=== PATIENT | male | born 1970 | race Caucasian/White ===

== ENCOUNTER 2017-02-24 13:44 | Inpatient (IN) | payer MEDICAID ==
[~2017-02-24] VITALS: Ht 177.8 cm; Wt 101.0 kg
[2017-02-24 15:54] LABS: Albumin 3.5 g/dL (3.4-5.0); Anion Gap 10 (5-15); Aspartate Aminotransferase 144 U/L (15-37); BUN/Creatinine Ratio 9.1; Blood Urea Nitrogen 8 mg/dL (7-18); Calcium 8.2 mg/dL (8.5-10.1); Carbon Dioxide 24 mmol/L (21-32); Chloride 108 mmol/L (98-107); GFR African American 119 mL/min; GFR Non-African American 99 mL/min; Glucose 68 mg/dL (74-106); Sodium 142 mmol/L (136-145)
[2017-02-24 15:59] LABS: Alkaline Phosphatase 79 U/L (45-117); Bilirubin, Total 0.3 mg/dL (0.2-1.0); Total Protein 7.2 g/dL (6.4-8.2)
[2017-02-24 16:32] LABS: Hematocrit 46.4 % (41.0-53.0); Mean Corpuscular Hemoglobin 31.3 pg (28.0-32.0); Mean Corpuscular Hgb Conc. 32.4 g/dL (32.0-36.0); Mean Corpuscular Volume 96.7 fL (80.0-100.0); Mean Platelet Volume 9.2 fL (7.4-10.4); Platelet Count (auto) 180 10^3/uL (140-450); Red Cell Distribution Width 14.2 % (11.6-16.0); White Blood Cell 4.7 10^3/uL (4.4-10.8)
[2017-02-24 16:37] LABS: Metamyelocytes % 0; Myelocytes % 0; Promyelocytes % 0; Reactive Lymphocytes 0
[2017-02-24] MEDS ORDERED: MORPHINE SULF INJ 2 MG/ML SYRINGE 1ML IV ONE (18:45)
[2017-02-24] MEDS ORDERED: ONDANSETRON HCL 4 MG/2 ML VIAL IV ONE (18:45)
[2017-02-24 18:56] LABS: Anisocytosis Slight; Platelet Estimate Adequate
[2017-02-24] MEDS ORDERED: HYDROcodone-ACET 10/325MG TAB PO ONE (21:00)
[2017-02-24] MEDS ORDERED: IPRATROPIUM BROM 0.5 MG/2.5ML INH SOL NEB ONE (21:30)
[2017-02-24] MEDS ORDERED: ALBUTEROL SULF 2.5 MG/0.5ML(0.5%) NEB SOLN NEB ONE (21:30)
[2017-02-24] MEDS ORDERED: ASPirin 81 mg TAB PO ONE (22:00)
[2017-02-24] MEDS ORDERED: cefTRIAXone 1GM/50ML D5W 50 ML IV ONE (22:00)
[2017-02-25] VITALS (9 sets, daily range): BP systolic 98–120; BP diastolic 59–71
[2017-02-25] MEDS ORDERED: IOHEXOL 350 MG/ML 100ML IJ ONE (01:32)
[2017-02-25] MEDS: SODIUM CHLORIDE 0.9% 1,000 ML IV SCH ×4 (01:33→08:02)
[2017-02-25] MEDS ORDERED: TEMAZEPAM 15 MG CAP PO PRN (01:45)
[2017-02-25] MEDS ORDERED: ACETAMINOPHEN 325 MG TAB PO PRN (01:45)
[2017-02-25] MEDS ORDERED: ONDANSETRON HCL 4 MG/2 ML VIAL IV PRN (01:45)
[2017-02-25] MEDS: ENOXAPARIN SOD 100 MG/1 ML SYRINGE SC SCH ×2 (03:03→15:00)
[2017-02-25] MEDS: HYDROcodone-ACET 5/325MG TAB PO PRN ×3 (04:38→20:08)
[2017-02-25] MEDS: ALBUTEROL SULF 2.5 MG/0.5ML(0.5%) NEB SOLN NEB PRN ×2 (09:33→20:14)
[2017-02-25] MEDS: FAMOTIDINE 20 MG TAB PO SCH ×2 (09:54→21:57)
[2017-02-25] MEDS: ASPirin 81 mg TAB PO SCH (09:57)
[2017-02-25] MEDS: ATENOLOL 25 MG TAB PO SCH (09:58)
[2017-02-25] MEDS ORDERED: ENOXAPARIN SOD 40 MG/0.4 ML SYRINGE SC SCH (10:00)
[2017-02-25] MEDS: cefTRIAXone 1GM/50ML D5W 50 ML IV SCH (21:57)
[2017-02-26] MEDS: ENOXAPARIN SOD 100 MG/1 ML SYRINGE SC SCH (03:04)
[2017-02-26 05:30] VITALS: BP 122/78
[2017-02-26] MEDS: HYDROcodone-ACET 5/325MG TAB PO PRN ×2 (06:33→10:33)
[2017-02-26 06:37] LABS: Basophils # (auto) 0 uL; Basophils % (auto) 0.6 % (0.0-2.0); Eosinophils # (auto) 0.2 uL; Eosinophils % (auto) 3.6 % (0.0-7.0); Hematocrit 41.9 % (41.0-53.0); Hemoglobin 13.8 g/dL (13.5-17.5); Lymphocytes # (auto) 1.8 uL; Lymphocytes % (auto) 38.2 % (10.0-50.0); Mean Corpuscular Hgb Conc. 32.8 g/dL (32.0-36.0); Mean Corpuscular Volume 97.4 fL (80.0-100.0); Mean Platelet Volume 9.4 fL (7.4-10.4); Monocytes # (auto) 0.7 uL; Monocytes % (auto) 15.3 % (0.0-12.0); Neutrophils % (auto) 42.3 % (37.0-80.0); Platelet Count (auto) 170 10^3/uL (140-450); Red Cell Distribution Width 15.3 % (11.6-16.0); White Blood Cell 4.8 10^3/uL (4.4-10.8)
[2017-02-26 07:22] LABS: Albumin 3.1 g/dL (3.4-5.0); BUN/Creatinine Ratio 12.3; Bilirubin, Total 0.5 mg/dL (0.2-1.0); Potassium 4.5 mmol/L (3.5-5.1); Total Protein 6.3 g/dL (6.4-8.2)
[2017-02-26 08:00] VITALS: BP 121/78
[2017-02-26] MEDS: ALBUTEROL SULF 2.5 MG/0.5ML(0.5%) NEB SOLN NEB PRN ×3 (08:48→20:18)
[2017-02-26] MEDS: ATENOLOL 25 MG TAB PO SCH (10:32)
[2017-02-26] MEDS: FAMOTIDINE 20 MG TAB PO SCH ×2 (10:32→20:47)
[2017-02-26] MEDS: ASPirin 81 mg TAB PO SCH (10:32)
[2017-02-26] MEDS: SODIUM CHLORIDE 0.9% 1,000 ML IV SCH (10:53)
[2017-02-26 13:00] VITALS: BP 116/75
[2017-02-26] MEDS: HYDROcodone-ACET 10/325MG TAB PO PRN ×2 (15:24→20:48)
[2017-02-26 17:30] VITALS: BP 118/65
[2017-02-26] MEDS: RIVAROXABAN 15 MG TAB PO SCH (20:48)
[2017-02-26 21:55] VITALS: BP 123/65
[2017-02-26] MEDS: cefTRIAXone 1GM/50ML D5W 50 ML IV SCH (23:58)
[2017-02-27] MEDS: HYDROcodone-ACET 10/325MG TAB PO PRN ×3 (00:54→10:32)
[2017-02-27] MEDS: SODIUM CHLORIDE 0.9% 1,000 ML IV SCH (03:33)
[2017-02-27 05:55] VITALS: BP 113/62
[2017-02-27 07:33] LABS: Albumin 3.1 g/dL (3.4-5.0); BUN/Creatinine Ratio 14.6; Bilirubin, Total 0.3 mg/dL (0.2-1.0); Calcium 8.1 mg/dL (8.5-10.1); Potassium 4.3 mmol/L (3.5-5.1); Total Protein 6.4 g/dL (6.4-8.2)
[2017-02-27 08:35] VITALS: BP 113/70
[2017-02-27] MEDS: ATENOLOL 25 MG TAB PO SCH (10:31)
[2017-02-27] MEDS: ASPirin 81 mg TAB PO SCH (10:31)
[2017-02-27] MEDS: RIVAROXABAN 15 MG TAB PO SCH (10:32)
[2017-02-27] MEDS: FAMOTIDINE 20 MG TAB PO SCH (10:32)
[2017-02-27 11:14] VITALS: BP 110/72
== END 2017-02-27 15:14 | disposition home or self-care (01) | DRG 134 ==
LOC: ER 13:46 → OVERFLOW 13:47 → CENTRAL 02-25 03:10
PROVIDERS: ADMIT Nurse Practitioner; ATTEND Internal Medicine
DX: I26.99 Other pulmonary embolism without acute cor pulmonale (principal); F11.20 Opioid dependence, uncomplicated; K74.60 Unspecified cirrhosis of liver; J40 Bronchitis, not specified as acute or chronic; B19.20 Unspecified viral hepatitis C without hepatic coma; R09.1 Pleurisy; F17.210 Nicotine dependence, cigarettes, uncomplicated; F19.10 Other psychoactive substance abuse, uncomplicated; J45.909 Unspecified asthma, uncomplicated; R79.89 Other specified abnormal findings of blood chemistry; Z82.49 Family history of ischemic heart disease and other diseases of the circulatory system; Z71.6 Tobacco abuse counseling
CPT/HCPCS: 36415; 71020; 71250; 71275; 80053; 82962; 84484; 85007; 85025; 85027; 85379; 87081; 93005; 94640; 94761; 96365; 96366; 96375; J0696; J2405

== ENCOUNTER 2020-10-01 13:28 | Inpatient (IN) | payer MEDICAID ==
[~2020-10-01] VITALS: Ht 177.8 cm; Wt 106.4 kg
[2020-10-01 14:34] LABS: Basophils # (auto) 0.1 10 ^3/uL (0-0.2); Basophils % (auto) 0.7 % (0.0-2.0); Eosinophils # (auto) 0.2 10 ^3/uL (0-0.8); Hemoglobin 13.6 g/dL (13.5-17.5); Lymphocytes # (auto) 1.7 10 ^3/uL (0.4-5.4); Mean Corpuscular Hemoglobin 29.1 pg (28.0-32.0); Mean Corpuscular Hgb Conc. 31.8 g/dL (32.0-36.0); Mean Corpuscular Volume 91.7 fL (80.0-100.0); Monocytes # (auto) 0.9 10 ^3/uL (0-1.3); Monocytes % (auto) 10.9 % (0.0-12.0); Neutrophils # (auto) 5.3 10 ^3/uL (1.6-8.6); Neutrophils % (auto) 65.4 % (37.0-80.0); Nucleated Red Blood Cells % 0.2 %; Platelet Count (auto) 251 10^3/uL (140-450); Red Blood Cells 4.69 10^6/uL (4.5-5.90); Red Cell Distribution Width 15.2 % (11.8-14.3); White Blood Cell 8.1 10^3/uL (4.4-10.8)
[2020-10-01] MEDS ORDERED: ATENOLOL 25 MG TAB PO ONE (14:45)
[2020-10-01] MEDS ORDERED: LABETALOL HCL 5 MG/ML 4ML SYRINGE IV ONE (14:45)
[2020-10-01 14:55] LABS: Anion Gap 7 (5-15); Blood Urea Nitrogen 17 mg/dL (7-18); Calcium 8.7 mg/dL (8.5-10.1); Carbon Dioxide 23 mmol/L (21-32); Chloride 109 mmol/L (98-107); Glucose 125 mg/dL (74-106); Potassium 4.5 mmol/L (3.5-5.1); Sodium 139 mmol/L (136-145)
[2020-10-01 14:58] LABS: Albumin 3.5 g/dL (3.4-5.0); BUN/Creatinine Ratio 12.4; GFR African American 70 mL/min; GFR Non-African American 58 mL/min
[2020-10-01 15:03] LABS: Alanine Aminotransferase 34 U/L (16-61); Alkaline Phosphatase 88 U/L (45-117); Aspartate Aminotransferase 26 U/L (15-37); Bilirubin, Total 1.2 mg/dL (0.2-1.0)
[2020-10-01] MEDS ORDERED: MORPHINE SULF INJ 2 MG/ML SYRINGE 1ML IV PRN (15:45)
[2020-10-01] MEDS ORDERED: NITROGLYCERIN 0.4 MG SL TAB SL PRN (15:45)
[2020-10-01] MEDS ORDERED: FUROSEMIDE 20 MG/2 ML VIAL IV ONE (15:45)
[2020-10-01] MEDS ORDERED: ACETAMINOPHEN 500 MG TAB PO PRN (15:45)
[2020-10-01] MEDS ORDERED: DIGOXIN (250MCG/ML) 2 ML AMPULE IV ONE (17:15)
[2020-10-01 18:21] LABS: CRP High Sensitivity 0.61 mg/dL (< 0.3); Magnesium 2.1 mg/dL (1.6-2.6)
[2020-10-01] MEDS: FUROSEMIDE 20 MG/2 ML VIAL IV SCH (20:10)
[2020-10-01] MEDS: buPROPion HCL 75 MG TAB PO SCH (21:30)
[2020-10-01] MEDS: QUEtiapine FUMARATE 25 MG TAB PO SCH (22:00)
[2020-10-01 22:32] LABS: Lactic Acid w/Reflex 2.3 mmol/L (0.4-2.0)
[2020-10-01] MEDS: CARVEDILOL 3.125 MG TAB PO SCH (23:20)
[2020-10-02] MEDS: DIGOXIN (250MCG/ML) 2 ML AMPULE IV SCH ×2 (00:30→05:30)
[2020-10-02 06:03] LABS: Urine Bacteria FEW /hpf (None Seen); Urine Blood Negative /uL (Negative); Urine Hyaline Cast FEW /lpf (0 - 2); Urine Mucus FEW (None Seen); Urine Specific Gravity 1.036 (1.001-1.035); Urine WBC 1 /hpf (0 - 3)
[2020-10-02 06:18] LABS: Amphetamine Screen, Urine NEGATIVE (NEGATIVE); Barbiturate Scree,Urine NEGATIVE (NEGATIVE); Benzodiazephine Screen, Urine NEGATIVE (NEGATIVE); Cannabinoid Screen, Urine NEGATIVE (NEGATIVE); Cocaine Screen, Urine NEGATIVE (NEGATIVE); Opiate Scree,Urine NEGATIVE (NEGATIVE); Phencyclidine Screen, Urine NEGATIVE (NEGATIVE)
[2020-10-02] MEDS: FUROSEMIDE 20 MG/2 ML VIAL IV SCH ×2 (06:19→18:28)
[2020-10-02] MEDS: buPROPion HCL 75 MG TAB PO SCH ×2 (07:00→18:29)
[2020-10-02 07:19] LABS: Basophils # (auto) 0.1 10 ^3/uL (0-0.2); Basophils % (auto) 0.9 % (0.0-2.0); Eosinophils # (auto) 0 10 ^3/uL (0-0.8); Hematocrit 43.2 % (41.0-53.0); Lymphocytes # (auto) 1.7 10 ^3/uL (0.4-5.4); Lymphocytes % (auto) 16.8 % (10.0-50.0); Mean Corpuscular Hemoglobin 29.5 pg (28.0-32.0); Mean Corpuscular Hgb Conc. 32.4 g/dL (32.0-36.0); Mean Corpuscular Volume 91.2 fL (80.0-100.0); Monocytes % (auto) 9.6 % (0.0-12.0); Neutrophils # (auto) 7.4 10 ^3/uL (1.6-8.6); Neutrophils % (auto) 72.7 % (37.0-80.0); Nucleated Red Blood Cells % 0.1 %; Platelet Count (auto) 207 10^3/uL (140-450); Red Blood Cells 4.73 10^6/uL (4.5-5.90); Red Cell Distribution Width 14.9 % (11.8-14.3); White Blood Cell 10.1 10^3/uL (4.4-10.8)
[2020-10-02 07:42] LABS: Potassium 4.7 mmol/L (3.5-5.1)
[2020-10-02 07:55] LABS: Albumin 3.4 g/dL (3.4-5.0); BUN/Creatinine Ratio 16.4; Bilirubin, Total 1.1 mg/dL (0.2-1.0); Calcium 8.7 mg/dL (8.5-10.1); Total Protein 6.5 g/dL (6.4-8.2)
[2020-10-02 08:10] LABS: Magnesium 2.2 mg/dL (1.6-2.6)
[2020-10-02] MEDS: ASPirin 81 mg TAB PO SCH (09:57)
[2020-10-02] MEDS ORDERED: ZINC SULFATE 220mg CAP or TAB PO SCH (10:00)
[2020-10-02] MEDS ORDERED: CHOLECALCIFEROL (VITD3) 2,000 UNIT CAP PO SCH (10:00)
[2020-10-02] MEDS ORDERED: ASCORBIC ACID 1,000 MG TAB PO SCH (10:00)
[2020-10-02] MEDS: CARVEDILOL 3.125 MG TAB PO SCH ×2 (10:00→23:03)
[2020-10-02] MEDS: ENOXAPARIN SOD 40 MG/0.4 ML SYRINGE SC SCH (10:00)
[2020-10-02] MEDS: dilTIAZem 120MG ER CAP PO SCH (10:03)
[2020-10-02 17:18] VITALS: BP 102/59
[2020-10-02 22:00] VITALS: BP 115/68
[2020-10-02] MEDS: LORazepam 0.5 MG TAB PO PRN (23:04)
[2020-10-02] MEDS: QUEtiapine FUMARATE 25 MG TAB PO SCH (23:04)
[2020-10-03] VITALS (7 sets, daily range): BP systolic 110–121; BP diastolic 0–76
[2020-10-03] MEDS: FUROSEMIDE 20 MG/2 ML VIAL IV SCH ×2 (06:11→17:38)
[2020-10-03] MEDS: buPROPion HCL 75 MG TAB PO SCH ×2 (06:11→17:38)
[2020-10-03 06:28] LABS: Calcium 8.3 mg/dL (8.5-10.1); Potassium 3.7 mmol/L (3.5-5.1)
[2020-10-03 06:33] LABS: BUN/Creatinine Ratio 18.1; Bilirubin, Total 0.4 mg/dL (0.2-1.0); Total Protein 5.8 g/dL (6.4-8.2)
[2020-10-03] MEDS: dilTIAZem 120MG ER CAP PO SCH (10:06)
[2020-10-03] MEDS: ASPirin 81 mg TAB PO SCH (10:07)
[2020-10-03] MEDS: CARVEDILOL 3.125 MG TAB PO SCH ×2 (10:07→21:48)
[2020-10-03] MEDS: ENOXAPARIN SOD 40 MG/0.4 ML SYRINGE SC SCH (10:10)
[2020-10-03] MEDS ORDERED: ALBUTEROL SULF 2.5 MG/0.5ML(0.5%) NEB SOLN NEB PRN (14:15)
[2020-10-03] MEDS ORDERED: POTASSIUM CHL 20 Meq TABLET PO ONE (14:15)
[2020-10-03] MEDS ORDERED: IPRATROPIUM BROM 0.5 MG/2.5ML INH SOL NEB PRN (14:15)
[2020-10-03] MEDS ORDERED: BUP75T PO (14:33)
[2020-10-03] MEDS ORDERED: QUET50TA PO (14:34)
[2020-10-03] MEDS: QUEtiapine FUMARATE 25 MG TAB PO SCH (21:46)
[2020-10-04] VITALS (7 sets, daily range): BP systolic 117–132; BP diastolic 64–94
[2020-10-04] MEDS: FUROSEMIDE 20 MG/2 ML VIAL IV SCH ×2 (05:47→17:17)
[2020-10-04] MEDS: buPROPion HCL 75 MG TAB PO SCH ×2 (05:47→17:18)
[2020-10-04 07:24] LABS: Albumin 3.3 g/dL (3.4-5.0); Calcium 8.5 mg/dL (8.5-10.1); Potassium 3.8 mmol/L (3.5-5.1)
[2020-10-04 07:28] LABS: BUN/Creatinine Ratio 22.1; Bilirubin, Total 0.4 mg/dL (0.2-1.0); Total Protein 6.6 g/dL (6.4-8.2)
[2020-10-04 09:18] LABS: Hepatitis B Surface Antibody Positive
[2020-10-04] MEDS: dilTIAZem 120MG ER CAP PO SCH (09:27)
[2020-10-04] MEDS: CARVEDILOL 3.125 MG TAB PO SCH ×2 (09:28→21:47)
[2020-10-04 09:49] LABS: Hepatitis A Total Antibody Positive
[2020-10-04] MEDS ORDERED: APIXABAN 5 MG TAB PO SCH (10:00)
[2020-10-04 10:27] LABS: Hepatitis B Surface Antigen Negative (Negative)
[2020-10-04 10:30] LABS: Hepatitis B Core Total AB Positive; Hepatitis C Antibody Positive (Negative)
[2020-10-04] MEDS ORDERED: OPTISON 3ml Vial for INJ IV ONE (10:37)
[2020-10-04] MEDS ORDERED: POTASSIUM CHL 20 Meq TABLET PO ONE (12:15)
[2020-10-04] MEDS: POTASSIUM CHL 10 Meq TABLET PO SCH (21:45)
[2020-10-04] MEDS: SACUBITRIL-VALSARTAN 24mg/26mg TAB PO SCH (21:45)
[2020-10-04] MEDS: LORazepam 0.5 MG TAB PO PRN (21:46)
[2020-10-04] MEDS: QUEtiapine FUMARATE 25 MG TAB PO SCH (21:46)
[2020-10-05 05:00] VITALS: BP 116/76
[2020-10-05] MEDS: FUROSEMIDE 20 MG/2 ML VIAL IV SCH ×2 (05:06→17:58)
[2020-10-05] MEDS: buPROPion HCL 75 MG TAB PO SCH ×2 (06:08→17:56)
[2020-10-05 06:22] LABS: Basophils # (auto) 0.1 10 ^3/uL (0-0.2); Basophils % (auto) 1.2 % (0.0-2.0); Eosinophils # (auto) 0.3 10 ^3/uL (0-0.8); Eosinophils % (auto) 3.4 % (0.0-7.0); Hematocrit 43.8 % (41.0-53.0); Hemoglobin 13.9 g/dL (13.5-17.5); Lymphocytes # (auto) 2.7 10 ^3/uL (0.4-5.4); Lymphocytes % (auto) 31.1 % (10.0-50.0); Mean Corpuscular Hemoglobin 28.7 pg (28.0-32.0); Mean Corpuscular Hgb Conc. 31.7 g/dL (32.0-36.0); Mean Corpuscular Volume 90.7 fL (80.0-100.0); Monocytes # (auto) 1.2 10 ^3/uL (0-1.3); Monocytes % (auto) 13.6 % (0.0-12.0); Neutrophils # (auto) 4.4 10 ^3/uL (1.6-8.6); Neutrophils % (auto) 50.7 % (37.0-80.0); Nucleated Red Blood Cells % 0.2 %; Platelet Count (auto) 233 10^3/uL (140-450); Red Blood Cells 4.83 10^6/uL (4.5-5.90); Red Cell Distribution Width 15.3 % (11.8-14.3); White Blood Cell 8.7 10^3/uL (4.4-10.8)
[2020-10-05 06:38] LABS: Calcium 8.9 mg/dL (8.5-10.1); Potassium 3.8 mmol/L (3.5-5.1)
[2020-10-05 06:40] LABS: INR 1.11 (0.9-1.15); Partial Thromboplastin Time 24.1 sec (23.0-31.2)
[2020-10-05 06:41] LABS: BUN/Creatinine Ratio 23.3
[2020-10-05] MEDS ORDERED: IOHEXOL 350 MG/ML 100ML IJ ONE ×2 (07:53→08:18)
[2020-10-05] MEDS ORDERED: LIDOCAINE 2%HCL (LOCAL ANESTH.) INJ 20ML MDV ONE (08:19)
[2020-10-05] MEDS ORDERED: ANGIOMAX 250 MG VIAL IV ONE (08:48)
[2020-10-05] MEDS ORDERED: SODIUM CHL 0.9% 0 ML ONE (08:49)
[2020-10-05] MEDS ORDERED: MIDAZOLAM HCL 1MG/1ML-2 ML VIAL ONE (08:49)
[2020-10-05] MEDS ORDERED: fentaNYL CITRATE 100 MCG/2 ML VL ONE (08:49)
[2020-10-05] MEDS ORDERED: diphenhdrAMINE HCL 50 MG/1 ML VL ONE (08:51)
[2020-10-05] MEDS ORDERED: ALBUAER3 IN (11:35)
[2020-10-05] MEDS ORDERED: CAR3125T PO (11:35)
[2020-10-05] MEDS ORDERED: APIX5TAB PO (11:35)
[2020-10-05] MEDS ORDERED: SACU1TAB PO (11:35)
[2020-10-05] MEDS ORDERED: PANT40TA2 PO (11:35)
[2020-10-05] MEDS ORDERED: FURO1TAB31 PO (11:35)
[2020-10-05] MEDS ORDERED: POTA-220 PO (11:35)
[2020-10-05] MEDS: CARVEDILOL 3.125 MG TAB PO SCH ×2 (12:24→21:50)
[2020-10-05] MEDS: POTASSIUM CHL 10 Meq TABLET PO SCH ×2 (12:24→21:50)
[2020-10-05] MEDS: SACUBITRIL-VALSARTAN 24mg/26mg TAB PO SCH ×2 (12:24→21:49)
[2020-10-05 13:00] VITALS: BP 101/62
[2020-10-05 16:59] VITALS: BP 124/70
[2020-10-05] MEDS ORDERED: ACETAMINOPHEN 500 MG TAB PO ONE (17:30)
[2020-10-05 20:00] VITALS: BP_DIAS 0
[2020-10-05] MEDS: QUEtiapine FUMARATE 25 MG TAB PO SCH (21:49)
[2020-10-05] MEDS: APIXABAN 5 MG TAB PO SCH (21:49)
[2020-10-05] MEDS: LORazepam 0.5 MG TAB PO PRN (21:58)
[2020-10-05 22:00] VITALS: BP 110/74
[2020-10-06] MEDS: FUROSEMIDE 20 MG/2 ML VIAL IV SCH (05:22)
[2020-10-06] MEDS: buPROPion HCL 75 MG TAB PO SCH (05:22)
[2020-10-06 05:30] VITALS: BP 109/73
[2020-10-06] MEDS: CARVEDILOL 3.125 MG TAB PO SCH (10:00)
[2020-10-06] MEDS: SACUBITRIL-VALSARTAN 24mg/26mg TAB PO SCH (10:21)
[2020-10-06] MEDS: APIXABAN 5 MG TAB PO SCH (10:24)
[2020-10-06] MEDS: POTASSIUM CHL 10 Meq TABLET PO SCH (10:24)
== END 2020-10-06 12:50 | disposition home health service (06) | DRG 192 ==
LOC: ER 13:28 → TELE 15:41 → TELE-CENTR 10-02 16:15
PROVIDERS: ADMIT Nurse Practitioner Acute Care; ATTEND Internal Medicine
PROC: 4A023N8 Measurement of Cardiac Sampling and Pressure, Bilateral, Percutaneous Approach (ICD-10-PCS; principal; 2020-10-05)
PROC: B2111ZZ Fluoroscopy of Multiple Coronary Arteries using Low Osmolar Contrast (ICD-10-PCS; 2020-10-05)
PROC: B2151ZZ Fluoroscopy of Left Heart using Low Osmolar Contrast (ICD-10-PCS; 2020-10-05)
DX: I50.43 Acute on chronic combined systolic (congestive) and diastolic (congestive) heart failure (principal); I21.A1 Myocardial infarction type 2; N17.0 Acute kidney failure with tubular necrosis; I48.92 Unspecified atrial flutter; I27.29 Other secondary pulmonary hypertension; I42.0 Dilated cardiomyopathy; N18.30 Chronic kidney disease, stage 3 unspecified; Z20.828 Contact with and (suspected) exposure to other viral communicable diseases; F31.9 Bipolar disorder, unspecified; F17.210 Nicotine dependence, cigarettes, uncomplicated; I48.91 Unspecified atrial fibrillation; F10.10 Alcohol abuse, uncomplicated; E66.9 Obesity, unspecified; J44.9 Chronic obstructive pulmonary disease, unspecified; Z68.33 Body mass index [BMI] 33.0-33.9, adult; Z71.41 Alcohol abuse counseling and surveillance of alcoholic; Z86.711 Personal history of pulmonary embolism; Z79.82 Long term (current) use of aspirin; Z82.49 Family history of ischemic heart disease and other diseases of the circulatory system
CPT/HCPCS: 36415; 36600; 71045; 71260; 74177; 80048; 80053; 80061; 80307; 81001; 82728; 82805; 83605; 83615; 83735; 83880; 84443; 84484; 85025; 85379; 85610; 85730; 86141; 86704; 86706; 86708; 86803; 87040; 87340; 87426; 93005; 93306; 93460; 96374; 96375; 99152; C1751; G0378; J2250; J3490; Q9956

== ENCOUNTER 2020-10-21 17:06 | Emergency (ER) | payer MEDICAID ==
[~2020-10-21] VITALS: Ht 177.8 cm; Wt 104.3 kg
[~2020-10-21 17:06] MED LIST: ALBUAER3 IN; APIX5TAB PO; BUP75T PO; CAR3125T PO; FURO1TAB31 PO; PANT40TA2 PO; POTA-220 PO; QUET50TA PO; SACU1TAB PO
[2020-10-21 17:37] VITALS: BP 118/84
[2020-10-22] MEDS ORDERED: BUPR300T28 PO (14:27)
[2020-10-22] MEDS ORDERED: SPIR25TA8 PO (14:27)
[2020-10-22] MEDS ORDERED: QUET200T44 PO (14:28)
[2020-10-22] MEDS ORDERED: ALBUAER3 IN (14:31)
[2020-10-24] MEDS ORDERED: DIGO0.12 PO (12:19)
== END 2020-10-21 22:46 | disposition left against medical advice (07) ==
LOC: ER 17:08
DX: R07.81 Pleurodynia (principal); Z53.21 Procedure and treatment not carried out due to patient leaving prior to being seen by health care provider
CPT/HCPCS: 71046

== ENCOUNTER 2020-10-22 10:02 | Inpatient (IN) | payer MEDICAID ==
[~2020-10-22] VITALS: Ht 177.8 cm; Wt 108.8 kg
[2020-10-22] MEDS ORDERED: ONDANSETRON HCL 4 MG/2 ML VIAL IV ONE (11:00)
[2020-10-22] MEDS ORDERED: SODIUM CHLORIDE 0.9% 500 ML IV ONE (11:00)
[2020-10-22] MEDS ORDERED: MORPHINE SULFATE 4 MG/ML SYR/VIAL IV ONE (11:00)
[2020-10-22 11:57] LABS: Albumin 4.1 g/dL (3.4-5.0); Anion Gap 8 (5-15); Blood Urea Nitrogen 21 mg/dL (7-18); Calcium 8.5 mg/dL (8.5-10.1); Carbon Dioxide 24 mmol/L (21-32); Chloride 102 mmol/L (98-107); Glucose 116 mg/dL (74-106); Potassium 5.3 mmol/L (3.5-5.1); Sodium 134 mmol/L (136-145)
[2020-10-22 12:03] LABS: Alanine Aminotransferase 32 U/L (16-61); Alkaline Phosphatase 105 U/L (45-117); Aspartate Aminotransferase 25 U/L (15-37); BUN/Creatinine Ratio 18.3; Bilirubin, Total 0.8 mg/dL (0.2-1.0); GFR African American 86 mL/min; GFR Non-African American 71 mL/min; Total Protein 8.2 g/dL (6.4-8.2)
[2020-10-22 12:09] LABS: Basophils # (auto) 0.1 10 ^3/uL (0-0.2); Basophils % (auto) 0.6 % (0.0-2.0); Eosinophils # (auto) 0 10 ^3/uL (0-0.8); Eosinophils % (auto) 0.2 % (0.0-7.0); Hematocrit 51.3 % (41.0-53.0); Hemoglobin 16.6 g/dL (13.5-17.5); Lymphocytes # (auto) 2.4 10 ^3/uL (0.4-5.4); Lymphocytes % (auto) 22.7 % (10.0-50.0); Mean Corpuscular Hemoglobin 28.6 pg (28.0-32.0); Mean Corpuscular Hgb Conc. 32.3 g/dL (32.0-36.0); Mean Corpuscular Volume 88.7 fL (80.0-100.0); Monocytes # (auto) 1.3 10 ^3/uL (0-1.3); Monocytes % (auto) 12.2 % (0.0-12.0); Neutrophils # (auto) 6.8 10 ^3/uL (1.6-8.6); Neutrophils % (auto) 64.3 % (37.0-80.0); Nucleated Red Blood Cells % 0.1 %; Platelet Count (auto) 317 10^3/uL (140-450); Red Blood Cells 5.78 10^6/uL (4.5-5.90); Red Cell Distribution Width 15.8 % (11.8-14.3); White Blood Cell 10.5 10^3/uL (4.4-10.8)
[2020-10-22] MEDS ORDERED: FUROSEMIDE 40 MG/4 ML VIAL IV ONE ×2 (12:45→14:00)
[2020-10-22] MEDS ORDERED: NITROGLYCERIN 0.4 MG SL TAB SL PRN ×2 (14:00→15:45)
[2020-10-22] MEDS ORDERED: MORPHINE SULF INJ 2 MG/ML SYRINGE 1ML IV PRN ×2 (14:00→15:45)
[2020-10-22] MEDS ORDERED: SODIUM CHLORIDE 0.9% 1,000 ML IV SCH (14:00)
[2020-10-22] MEDS ORDERED: LACTATED RINGER'S 1,000 ML IV ONE (14:00)
[2020-10-22] MEDS ORDERED: SPIR25TA8 PO (14:27)
[2020-10-22] MEDS ORDERED: BUPR300T28 PO (14:27)
[2020-10-22] MEDS ORDERED: QUET200T44 PO (14:28)
[2020-10-22] MEDS ORDERED: ALBUAER3 IN (14:31)
[2020-10-22] MEDS ORDERED: ACETAMINOPHEN 325 MG TAB PO PRN (15:45)
[2020-10-22] MEDS ORDERED: ALUM & MAG HYDROX-SIMETH LIQ(MAALOX) 30 ML PO PRN (15:45)
[2020-10-22] MEDS ORDERED: DOCUSATE SOD 100 MG CAP PO PRN (15:45)
[2020-10-22] MEDS ORDERED: PNEUMOCOCCAL VACC POLYS 25 MCG/0.5 ML VIAL IM ONE (15:45)
[2020-10-22] MEDS ORDERED: INFLUENZA QUAD 2020-2021 0.5 ML SYRG IM ONE (15:45)
[2020-10-22] MEDS ORDERED: ALBUTEROL SULF HFA 90MCG INH 200DOSE IN PRN (15:45)
[2020-10-22 21:00] LABS: Urine Bacteria NONE SEEN /hpf (None Seen); Urine Blood Negative /uL (Negative); Urine WBC <1 /hpf (0 - 3)
[2020-10-22 21:06] LABS: Amphetamine Screen, Urine POSITIVE (NEGATIVE); Barbiturate Scree,Urine NEGATIVE (NEGATIVE); Benzodiazephine Screen, Urine NEGATIVE (NEGATIVE); Cannabinoid Screen, Urine NEGATIVE (NEGATIVE); Cocaine Screen, Urine NEGATIVE (NEGATIVE); Opiate Scree,Urine NEGATIVE (NEGATIVE); Phencyclidine Screen, Urine NEGATIVE (NEGATIVE)
[2020-10-22] MEDS: ONDANSETRON HCL 4 MG/2 ML VIAL IV PRN (22:57)
[2020-10-22] MEDS: QUEtiapine FUMARATE 100 MG TAB PO SCH (22:58)
[2020-10-22] MEDS: SACUBITRIL-VALSARTAN 24mg/26mg TAB PO SCH (22:58)
[2020-10-22] MEDS: ATORVASTATIN 20 MG TAB PO SCH (22:58)
[2020-10-22] MEDS: APIXABAN 5 MG TAB PO SCH (22:59)
[2020-10-22] MEDS: CARVEDILOL 3.125 MG TAB PO SCH (22:59)
[2020-10-22 23:43] LABS: Cholesterol 177 mg/dL (< 200); HDL Cholesterol 62 mg/dL (40-59); LDL Cholesterol 93 mg/dL (< 100); Triglycerides 138 mg/dL (< 150)
[2020-10-23 03:39] VITALS: BP 118/87
[2020-10-23] MEDS ORDERED: ALBUTEROL SULF 2.5 MG/0.5ML(0.5%) NEB SOLN NEB PRN (04:15)
[2020-10-23] MEDS: MORPHINE SULF INJ 2 MG/ML SYRINGE 1ML IV PRN ×2 (05:51→10:32)
[2020-10-23] MEDS: ONDANSETRON HCL 4 MG/2 ML VIAL IV PRN ×2 (05:51→10:59)
[2020-10-23] MEDS: FUROSEMIDE 40 MG/4 ML VIAL IV SCH ×3 (06:00→18:16)
[2020-10-23] MEDS: buPROPion HCL 75 MG TAB PO SCH ×4 (07:00→18:16)
[2020-10-23 10:20] VITALS: BP 108/74
[2020-10-23] MEDS: CARVEDILOL 3.125 MG TAB PO SCH ×2 (10:57→22:11)
[2020-10-23] MEDS: APIXABAN 5 MG TAB PO SCH ×2 (10:57→22:11)
[2020-10-23] MEDS: PANTOPRAZOLE 40 MG TAB PO SCH (10:58)
[2020-10-23] MEDS: SACUBITRIL-VALSARTAN 24mg/26mg TAB PO SCH ×2 (10:58→22:11)
[2020-10-23] MEDS: LORazepam 0.5 MG TAB PO PRN ×2 (10:59→18:24)
[2020-10-23 11:03] VITALS: BP 108/74
[2020-10-23] MEDS: NICOTINE 14 MG/24HR TOPICAL PATCH TD ONE ×2 (11:45→13:10)
[2020-10-23] MEDS: HYDROcodone-ACET 5/325MG TAB PO PRN ×3 (12:59→22:13)
[2020-10-23 13:00] VITALS: BP 121/86
[2020-10-23] MEDS ORDERED: DIGOXIN (250MCG/ML) 2 ML AMPULE IV ONE (13:15)
[2020-10-23] MEDS: DIGOXIN (250MCG/ML) 2 ML AMPULE IV SCH ×2 (14:50→21:15)
[2020-10-23 17:00] VITALS: BP 121/67
--- NOTE | 2020-10-23 19:30 | NUR ---
Opening Shift Note Assumed care of patient, awake and alert x4. No S/S of distress/SOB. Complaints of pain to the right ribcage 10/0-10, pain management options discussed, will medicate as ordered. Instructed on POC and to call for assist PRN, will continue to monitor for changes Q1hr and PRN.
[2020-10-23] MEDS: KETOROLAC TROMETH 30 MG/ML 1ML VIAL IV PRN (20:14)
[2020-10-23 21:58] VITALS: BP 113/75
[2020-10-23] MEDS: QUEtiapine FUMARATE 100 MG TAB PO SCH (22:12)
[2020-10-23] MEDS: ATORVASTATIN 20 MG TAB PO SCH (22:13)
[2020-10-24] MEDS: DIGOXIN (250MCG/ML) 2 ML AMPULE IV SCH (03:39)
[2020-10-24 05:00] VITALS: BP 103/60
[2020-10-24] MEDS: FUROSEMIDE 40 MG/4 ML VIAL IV SCH (06:33)
[2020-10-24] MEDS: buPROPion HCL 75 MG TAB PO SCH (06:33)
[2020-10-24 08:00] VITALS: BP 132/68
[2020-10-24 08:11] LABS: Potassium 3.7 mmol/L (3.5-5.1)
[2020-10-24 08:20] LABS: BUN/Creatinine Ratio 27.7; Magnesium 2.4 mg/dL (1.6-2.6)
[2020-10-24] MEDS: KETOROLAC TROMETH 30 MG/ML 1ML VIAL IV PRN (08:33)
[2020-10-24 09:00] VITALS: BP 132/68
[2020-10-24] MEDS ORDERED: NICOTINE 14 MG/24HR TOPICAL PATCH TD SCH (10:00)
[2020-10-24] MEDS ORDERED: SACUBITRIL-VALSARTAN 24mg/26mg TAB PO SCH (10:00)
[2020-10-24] MEDS: APIXABAN 5 MG TAB PO SCH (10:17)
[2020-10-24] MEDS: PANTOPRAZOLE 40 MG TAB PO SCH (10:17)
[2020-10-24] MEDS: SACUBITRIL-VALSARTAN 24mg/26mg TAB PO SCH (10:17)
[2020-10-24] MEDS: CARVEDILOL 3.125 MG TAB PO SCH (10:30)
[2020-10-24] MEDS: HYDROcodone-ACET 5/325MG TAB PO PRN ×2 (11:22→17:23)
[2020-10-24] MEDS ORDERED: DIGO0.12 PO (12:19)
[2020-10-24] MEDS ORDERED: TRAM50TA2 PO (12:25)
[2020-10-24 13:00] VITALS: BP 113/62
[2020-10-24 15:08] VITALS: BP 132/68
[2020-10-24] MEDS: LORazepam 0.5 MG TAB PO PRN (15:23)
[2020-10-24 17:00] VITALS: BP 119/69
--- NOTE | 2020-10-24 17:16 | NUR ---
PATIENT DISCHARGED HOME WITH FAMILY. ALL IV ACCESS DISCONTINUED. TELEMETRY BOX REMOVED AND RETURNED TO TELEMETRY DEPARTMENT. ALL DISCHARGE INSTRUCTIONS GIVEN. ALL DISCHARGE PAPERWORK SIGNED
--- NOTE | 2020-10-25 10:29 | NUR ---
[facility], Per Tosha from [facility] has given authorization [id number]. Services will start within 24 to 48 hours of discharge.
== END 2020-10-24 17:30 | disposition home health service (06) | DRG 812 ==
LOC: ER 10:02 → EDUNIT# 10:02 → EDBD 10:02 → TELE 10:03 → TELE-WESTW 10-23 09:25
PROVIDERS: ADMIT Hospitalist; ATTEND Internal Medicine
DX: T43.621A Poisoning by amphetamines, accidental (unintentional), initial encounter (principal); I13.0 Hypertensive heart and chronic kidney disease with heart failure and stage 1 through stage 4 chronic kidney disease, or unspecified chronic kidney disease; I50.43 Acute on chronic combined systolic (congestive) and diastolic (congestive) heart failure; S22.41XA Multiple fractures of ribs, right side, initial encounter for closed fracture; I48.91 Unspecified atrial fibrillation; N18.30 Chronic kidney disease, stage 3 unspecified; E87.5 Hyperkalemia; E66.9 Obesity, unspecified; E78.5 Hyperlipidemia, unspecified; J44.9 Chronic obstructive pulmonary disease, unspecified; F10.20 Alcohol dependence, uncomplicated; J81.0 Acute pulmonary edema; F17.210 Nicotine dependence, cigarettes, uncomplicated; F31.9 Bipolar disorder, unspecified; I27.20 Pulmonary hypertension, unspecified; I42.0 Dilated cardiomyopathy; I42.6 Alcoholic cardiomyopathy; I42.7 Cardiomyopathy due to drug and external agent; I47.1 Supraventricular tachycardia; J98.11 Atelectasis; V13.4XXA Pedal cycle driver injured in collision with car, pick-up truck or van in traffic accident, initial encounter; Y93.55 Activity, bike riding; Z82.49 Family history of ischemic heart disease and other diseases of the circulatory system; Z91.14 Patient's other noncompliance with medication regimen; Z91.19 Patient's noncompliance with other medical treatment and regimen; Y92.410 Unspecified street and highway as the place of occurrence of the external cause; Z68.34 Body mass index [BMI] 34.0-34.9, adult; Z79.01 Long term (current) use of anticoagulants; J91.8 Pleural effusion in other conditions classified elsewhere; F15.10 Other stimulant abuse, uncomplicated; F12.10 Cannabis abuse, uncomplicated; Z86.711 Personal history of pulmonary embolism
CPT/HCPCS: 36415; 71046; 71275; 80048; 80053; 80061; 80307; 81001; 82550; 83036; 83735; 83880; 84484; 85025; 87040; 87086; 93005; 96361; 96374; 96375; G0378; J1885; J2405

== ENCOUNTER 2021-01-24 21:24 | Inpatient (IN) | payer MEDICAID ==
[~2021-01-24] VITALS: Ht 177.8 cm; Wt 101.0 kg
[~2021-01-24 21:24] MED LIST changes: -BUP75T PO; +DIGO0.12 PO; +QUET200T45 PO; -QUET50TA PO
[2021-01-24 23:40] LABS: Basophils # (auto) 0.1 10 ^3/uL (0-0.2); Basophils % (auto) 0.7 % (0.0-2.0); Eosinophils # (auto) 0.3 10 ^3/uL (0-0.8); Eosinophils % (auto) 3.8 % (0.0-7.0); Hematocrit 38.9 % (41.0-53.0); Hemoglobin 12.8 g/dL (13.5-17.5); Lymphocytes # (auto) 2.2 10 ^3/uL (0.4-5.4); Lymphocytes % (auto) 27.8 % (10.0-50.0); Mean Corpuscular Hemoglobin 33.7 pg (28.0-32.0); Mean Corpuscular Hgb Conc. 32.9 g/dL (32.0-36.0); Mean Corpuscular Volume 102.2 fL (80.0-100.0); Monocytes # (auto) 0.9 10 ^3/uL (0-1.3); Monocytes % (auto) 11.4 % (0.0-12.0); Neutrophils # (auto) 4.5 10 ^3/uL (1.6-8.6); Neutrophils % (auto) 56.3 % (37.0-80.0); Nucleated Red Blood Cells % 0.2 %; Red Cell Distribution Width 17.2 % (11.8-14.3); White Blood Cell 8.1 10^3/uL (4.4-10.8)
[2021-01-24 23:43] LABS: INR 1.17 (0.9-1.15); Partial Thromboplastin Time 27.8 sec (23.0-31.2)
[2021-01-24 23:47] LABS: Albumin 2.7 g/dL (3.4-5.0); BUN/Creatinine Ratio 9.5; Calcium 8.1 mg/dL (8.5-10.1); Magnesium 1.7 mg/dL (1.6-2.6); Potassium 3.9 mmol/L (3.5-5.1)
[2021-01-24 23:59] LABS: Bilirubin, Total 0.3 mg/dL (0.2-1.0); Total Protein 6.9 g/dL (6.4-8.2)
[2021-01-25] MEDS ORDERED: dilTIAZem 25 MG/5 ML VIAL IV ONE (00:15)
[2021-01-25] MEDS ORDERED: dilTIAZem 125mg/125ml BAG KIT 100 ML IV SCH (01:15)
[2021-01-25] MEDS ORDERED: QUEtiapine FUMARATE 100 MG TAB PO ONE ×2 (02:15)
[2021-01-25] MEDS ORDERED: FUROSEMIDE 40 MG/4 ML VIAL IV ONE (02:15)
[2021-01-25] MEDS ORDERED: IOPAMIDOL 76 % (ISOVUE-370) 100ML BTL IV ONE (02:32)
[2021-01-25] MEDS ORDERED: LORazepam 2MG/ML-1ML VIAL IV ONE (03:00)
[2021-01-25 05:20] LABS: Amphetamine Screen, Urine NEGATIVE (NEGATIVE); Barbiturate Scree,Urine NEGATIVE (NEGATIVE); Benzodiazephine Screen, Urine NEGATIVE (NEGATIVE); Cannabinoid Screen, Urine NEGATIVE (NEGATIVE); Cocaine Screen, Urine NEGATIVE (NEGATIVE); Opiate Scree,Urine NEGATIVE (NEGATIVE); Phencyclidine Screen, Urine NEGATIVE (NEGATIVE)
[2021-01-25] MEDS ORDERED: DOCUSATE SOD 100 MG CAP PO PRN (06:00)
[2021-01-25] MEDS ORDERED: NITROGLYCERIN 0.4 MG SL TAB SL PRN (06:00)
[2021-01-25] MEDS ORDERED: MORPHINE SULFATE INJECTION 2 MG/ML SYRG IV PRN (06:00)
[2021-01-25] MEDS ORDERED: HYDROcodone-ACET 5/325MG TAB PO PRN (06:00)
[2021-01-25] MEDS ORDERED: ONDANSETRON HCL 4 MG/2 ML VIAL IV PRN (06:00)
[2021-01-25] MEDS ORDERED: ACETAMINOPHEN 325 MG TAB PO PRN (06:00)
[2021-01-25] MEDS ORDERED: LORazepam 2MG/ML-1ML VIAL IV PRN (06:00)
[2021-01-25] MEDS ORDERED: MORPHINE SULFATE 4 MG/ML SYR/VIAL IV PRN (06:00)
[2021-01-25] MEDS: SODIUM CHLOR 0.9% PF (SALINE LOCK) 10ML VIAL/SYR IV SCH ×3 (06:42→21:49)
[2021-01-25 07:39] LABS: Basophils # (auto) 0.1 10 ^3/uL (0-0.2); Eosinophils # (auto) 0.3 10 ^3/uL (0-0.8); Hemoglobin 13.1 g/dL (13.5-17.5); Lymphocytes # (auto) 2.1 10 ^3/uL (0.4-5.4); Lymphocytes % (auto) 27.9 % (10.0-50.0); Monocytes # (auto) 0.8 10 ^3/uL (0-1.3); Monocytes % (auto) 11.2 % (0.0-12.0); Neutrophils # (auto) 4.1 10 ^3/uL (1.6-8.6); White Blood Cell 7.4 10^3/uL (4.4-10.8)
[2021-01-25 07:41] LABS: Eosinophils % (auto) 4.1 % (0.0-7.0); Hematocrit 38.4 % (41.0-53.0); Mean Corpuscular Hemoglobin 34.8 pg (28.0-32.0); Mean Corpuscular Hgb Conc. 34.2 g/dL (32.0-36.0); Mean Corpuscular Volume 101.9 fL (80.0-100.0); Neutrophils % (auto) 55.8 % (37.0-80.0); Nucleated Red Blood Cells % 0.1 %; Red Blood Cells 3.77 10^6/uL (4.5-5.90); Red Cell Distribution Width 16.8 % (11.8-14.3)
[2021-01-25 07:52] LABS: Potassium 3.8 mmol/L (3.5-5.1)
[2021-01-25 08:00] LABS: Albumin 2.8 g/dL (3.4-5.0); BUN/Creatinine Ratio 11.3; Bilirubin, Total 0.5 mg/dL (0.2-1.0); Calcium 8.5 mg/dL (8.5-10.1); Total Protein 7.2 g/dL (6.4-8.2)
[2021-01-25 08:17] LABS: Alcohol, Urine < 3.0 mg/dL (0-10); Amphetamine Screen, Urine NEGATIVE (NEGATIVE); Barbiturate Scree,Urine NEGATIVE (NEGATIVE); Benzodiazephine Screen, Urine NEGATIVE (NEGATIVE); Cannabinoid Screen, Urine NEGATIVE (NEGATIVE); Cocaine Screen, Urine NEGATIVE (NEGATIVE); Opiate Scree,Urine NEGATIVE (NEGATIVE); Phencyclidine Screen, Urine NEGATIVE (NEGATIVE)
[2021-01-25] MEDS ORDERED: ADENOSINE 6 MG/2 ML INJ IV ONE ×2 (08:45→09:00)
[2021-01-25 08:50] VITALS: BP 127/90
[2021-01-25] MEDS ORDERED: AMIODARONE 450mg/250ml AE 250 ML IV SCH (09:00)
[2021-01-25] MEDS ORDERED: AMIODARONE HCL 150 MG in D5W 5% 100 ML IV ONE (09:00)
[2021-01-25] MEDS ORDERED: ENOXAPARIN SOD 40 MG/0.4 ML SYRINGE SC SCH (10:00)
[2021-01-25] MEDS: FUROSEMIDE 40 MG/4 ML VIAL IV SCH (10:14)
[2021-01-25] MEDS: ZINC SULFATE 220mg CAP or TAB PO SCH (10:15)
[2021-01-25] MEDS: ASPirin 81 mg TAB PO SCH (10:15)
[2021-01-25] MEDS: CARVEDILOL 12.5 MG TAB PO SCH ×2 (10:27→21:40)
[2021-01-25] MEDS: FAMOTIDINE 20 MG TAB PO SCH ×2 (10:28→21:39)
[2021-01-25] MEDS: ASCORBIC ACID 500 MG TAB PO SCH ×2 (10:28→21:39)
[2021-01-25] MEDS: MULTIPLE VITAMIN TAB PO SCH (10:28)
[2021-01-25] MEDS ORDERED: QUET300T24 PO (10:32)
[2021-01-25] MEDS ORDERED: QUET50TA PO (10:32)
[2021-01-25] MEDS ORDERED: AMIO200T33 PO (10:32)
[2021-01-25] MEDS ORDERED: BUPR200T2 PO (10:32)
[2021-01-25] MEDS ORDERED: HYDR25CA PO (10:32)
[2021-01-25 13:00] VITALS: BP 104/69
[2021-01-25] MEDS ORDERED: IPRATROPIUM BROM 0.5 MG/2.5ML INH SOL NEB PRN (13:45)
[2021-01-25] MEDS ORDERED: AZITHROMYCIN 250 MG TAB PO ONE (13:45)
[2021-01-25] MEDS ORDERED: ALBUTEROL SULF 2.5 MG/0.5ML(0.5%) NEB SOLN NEB PRN (13:45)
[2021-01-25] MEDS ORDERED: chlordiazePOXIDE HCL 25 MG CAP PO ONE (13:45)
[2021-01-25] MEDS: AMIODARONE 450mg/250ml AE 250 ML IV SCH (14:59)
[2021-01-25 15:56] VITALS: BP 104/69
[2021-01-25] MEDS ORDERED: DIGOXIN (250MCG/ML) 2 ML AMPULE IV ONE ×2 (16:30→21:00)
[2021-01-25] MEDS ORDERED: metOLazone 5 MG TAB PO ONE (16:30)
[2021-01-25 17:00] VITALS: BP 117/82
[2021-01-25] MEDS: chlordiazePOXIDE HCL 25 MG CAP PO SCH (17:37)
[2021-01-25] MEDS: IPRATROPIUM BROM 0.5 MG/2.5ML INH SOL NEB SCH (19:49)
[2021-01-25] MEDS: ALBUTEROL SULF 2.5 MG/0.5ML(0.5%) NEB SOLN NEB SCH (19:49)
[2021-01-25] MEDS: QUEtiapine FUMARATE 100 MG TAB PO SCH (21:39)
[2021-01-25] MEDS: ATORVASTATIN 20 MG TAB PO SCH (21:40)
[2021-01-25] MEDS: ENOXAPARIN SOD 100 MG/1 ML SYRINGE SC SCH (21:50)
[2021-01-25 22:00] VITALS: BP 122/90
[2021-01-26] MEDS: chlordiazePOXIDE HCL 25 MG CAP PO SCH ×4 (01:05→17:12)
[2021-01-26 05:00] VITALS: BP 115/62
[2021-01-26] MEDS: SODIUM CHLOR 0.9% PF (SALINE LOCK) 10ML VIAL/SYR IV SCH ×3 (05:53→21:12)
[2021-01-26] MEDS: AMIODARONE 450mg/250ml AE 250 ML IV SCH (05:53)
[2021-01-26 06:44] LABS: Eosinophils # (auto) 0.3 10 ^3/uL (0-0.8); Hemoglobin 13.5 g/dL (13.5-17.5); Lymphocytes # (auto) 1.8 10 ^3/uL (0.4-5.4); Mean Corpuscular Hemoglobin 34.3 pg (28.0-32.0); Mean Corpuscular Volume 102.5 fL (80.0-100.0); Monocytes # (auto) 0.8 10 ^3/uL (0-1.3)
[2021-01-26 06:46] LABS: Basophils # (auto) 0 10 ^3/uL (0-0.2); Basophils % (auto) 0.7 % (0.0-2.0); Eosinophils % (auto) 4.3 % (0.0-7.0); Hematocrit 40.4 % (41.0-53.0); Lymphocytes % (auto) 26.1 % (10.0-50.0); Mean Corpuscular Hgb Conc. 33.4 g/dL (32.0-36.0); Monocytes % (auto) 11.3 % (0.0-12.0); Neutrophils % (auto) 57.6 % (37.0-80.0); Nucleated Red Blood Cells % 0.2 %; Red Blood Cells 3.94 10^6/uL (4.5-5.90); Red Cell Distribution Width 16.6 % (11.8-14.3); White Blood Cell 6.9 10^3/uL (4.4-10.8)
[2021-01-26 08:48] LABS: Albumin 2.7 g/dL (3.4-5.0); Calcium 8.7 mg/dL (8.5-10.1)
[2021-01-26 08:51] LABS: Bilirubin, Total 0.4 mg/dL (0.2-1.0)
[2021-01-26 09:00] VITALS: BP 108/65
[2021-01-26] MEDS: ASCORBIC ACID 500 MG TAB PO SCH ×2 (10:16→21:11)
[2021-01-26] MEDS: MULTIPLE VITAMIN TAB PO SCH (10:16)
[2021-01-26] MEDS: CARVEDILOL 12.5 MG TAB PO SCH ×2 (10:16→21:11)
[2021-01-26] MEDS: ASPirin 81 mg TAB PO SCH (10:16)
[2021-01-26] MEDS: AZITHROMYCIN 250 MG TAB PO SCH (10:17)
[2021-01-26] MEDS: ZINC SULFATE 220mg CAP or TAB PO SCH (10:17)
[2021-01-26] MEDS: ENOXAPARIN SOD 100 MG/1 ML SYRINGE SC SCH ×2 (10:17→21:00)
[2021-01-26] MEDS: FUROSEMIDE 40 MG/4 ML VIAL IV SCH (10:25)
[2021-01-26] MEDS: FAMOTIDINE 20 MG TAB PO SCH ×2 (10:25→21:11)
[2021-01-26] MEDS ORDERED: AMIODARONE HCL 200 MG TAB PO ONE (11:00)
[2021-01-26] MEDS ORDERED: metOLazone 5 MG TAB PO ONE (14:00)
[2021-01-26 14:52] VITALS: BP 107/80
[2021-01-26] MEDS: ALBUTEROL SULF 2.5 MG/0.5ML(0.5%) NEB SOLN NEB SCH ×2 (15:00→19:48)
[2021-01-26] MEDS: IPRATROPIUM BROM 0.5 MG/2.5ML INH SOL NEB SCH ×2 (15:00→19:48)
[2021-01-26 17:08] VITALS: BP 102/75
[2021-01-26] MEDS: Ensure HIGH Protein Chocolate 8oz Bottle PO SCH (17:12)
[2021-01-26] MEDS: QUEtiapine FUMARATE 100 MG TAB PO SCH (21:10)
[2021-01-26] MEDS: ATORVASTATIN 20 MG TAB PO SCH (21:10)
[2021-01-26] MEDS: AMIODARONE HCL 200 MG TAB PO SCH (21:11)
[2021-01-26 22:00] VITALS: BP 110/79
[2021-01-27 05:00] VITALS: BP 102/60
[2021-01-27 05:12] LABS: Basophils # (auto) 0.1 10 ^3/uL (0-0.2); Eosinophils # (auto) 0.3 10 ^3/uL (0-0.8); Mean Corpuscular Hgb Conc. 33.8 g/dL (32.0-36.0); Nucleated Red Blood Cells % 0.1 %; White Blood Cell 9.4 10^3/uL (4.4-10.8)
[2021-01-27 05:15] LABS: Basophils % (auto) 0.8 % (0.0-2.0); Eosinophils % (auto) 3.3 % (0.0-7.0); Hematocrit 43.2 % (41.0-53.0); Hemoglobin 14.6 g/dL (13.5-17.5); Lymphocytes # (auto) 1.6 10 ^3/uL (0.4-5.4); Lymphocytes % (auto) 17.1 % (10.0-50.0); Mean Corpuscular Hemoglobin 34.3 pg (28.0-32.0); Mean Corpuscular Volume 101.5 fL (80.0-100.0); Neutrophils # (auto) 6.4 10 ^3/uL (1.6-8.6); Neutrophils % (auto) 67.8 % (37.0-80.0); Red Blood Cells 4.25 10^6/uL (4.5-5.90); Red Cell Distribution Width 16.3 % (11.8-14.3)
[2021-01-27 05:27] LABS: Calcium 8.6 mg/dL (8.5-10.1); Potassium 3.8 mmol/L (3.5-5.1)
[2021-01-27 05:29] LABS: BUN/Creatinine Ratio 15.6
[2021-01-27] MEDS: chlordiazePOXIDE HCL 25 MG CAP PO SCH ×3 (05:51→12:05)
[2021-01-27] MEDS: SODIUM CHLOR 0.9% PF (SALINE LOCK) 10ML VIAL/SYR IV SCH (05:52)
[2021-01-27] MEDS: ALBUTEROL SULF 2.5 MG/0.5ML(0.5%) NEB SOLN NEB SCH (07:58)
[2021-01-27] MEDS: IPRATROPIUM BROM 0.5 MG/2.5ML INH SOL NEB SCH ×2 (07:59→12:03)
[2021-01-27] MEDS: Ensure HIGH Protein Chocolate 8oz Bottle PO SCH ×2 (08:45→12:05)
[2021-01-27 09:00] VITALS: BP 125/85
[2021-01-27] MEDS: ASPirin 81 mg TAB PO SCH (09:42)
[2021-01-27] MEDS: FUROSEMIDE 40 MG/4 ML VIAL IV SCH (09:42)
[2021-01-27] MEDS: ZINC SULFATE 220mg CAP or TAB PO SCH (09:42)
[2021-01-27] MEDS: MULTIPLE VITAMIN TAB PO SCH (09:43)
[2021-01-27] MEDS: AZITHROMYCIN 250 MG TAB PO SCH (09:43)
[2021-01-27] MEDS: AMIODARONE HCL 200 MG TAB PO SCH (09:43)
[2021-01-27] MEDS: CARVEDILOL 12.5 MG TAB PO SCH (09:43)
[2021-01-27] MEDS: ASCORBIC ACID 500 MG TAB PO SCH (09:43)
[2021-01-27] MEDS: FAMOTIDINE 20 MG TAB PO SCH (09:43)
[2021-01-27] MEDS: ENOXAPARIN SOD 100 MG/1 ML SYRINGE SC SCH (09:56)
[2021-01-27 12:20] VITALS: BP 125/85
== END 2021-01-27 13:46 | disposition home or self-care (01) | DRG 194 ==
LOC: ER 21:24 → TELE 21:25 → TELE-WESTW 01-25 08:38
PROVIDERS: ADMIT Nurse Practitioner Family; ATTEND Internal Medicine
DX: I50.43 Acute on chronic combined systolic (congestive) and diastolic (congestive) heart failure (principal); E44.0 Moderate protein-calorie malnutrition; F10.231 Alcohol dependence with withdrawal delirium; M94.0 Chondrocostal junction syndrome [Tietze]; Z68.31 Body mass index [BMI] 31.0-31.9, adult; D68.69 Other thrombophilia; E66.01 Morbid (severe) obesity due to excess calories; F12.90 Cannabis use, unspecified, uncomplicated; F15.90 Other stimulant use, unspecified, uncomplicated; J98.11 Atelectasis; F17.210 Nicotine dependence, cigarettes, uncomplicated; F20.9 Schizophrenia, unspecified; R06.03 Acute respiratory distress; Z20.822 Contact with and (suspected) exposure to COVID-19; I48.19 Other persistent atrial fibrillation; D63.8 Anemia in other chronic diseases classified elsewhere; F31.9 Bipolar disorder, unspecified; I48.92 Unspecified atrial flutter; J45.909 Unspecified asthma, uncomplicated; Z82.49 Family history of ischemic heart disease and other diseases of the circulatory system; Z91.14 Patient's other noncompliance with medication regimen; R07.89 Other chest pain; R79.89 Other specified abnormal findings of blood chemistry
CPT/HCPCS: 36415; 71045; 71275; 76705; 80048; 80053; 80162; 80307; 80320; 82140; 83605; 83735; 83880; 84443; 84484; 85025; 85379; 85610; 85730; 87081; 87426; 93005; 93306; 93970; 94640; 96365; 96375; G0378; J7060

== ENCOUNTER 2021-03-04 22:25 | Inpatient (IN) | payer MEDICAID ==
[~2021-03-04] VITALS: Ht 177.8 cm; Wt 111.0 kg
[~2021-03-04 22:25] MED LIST changes: +AMIO200T33 PO; +BUPR200T2 PO; +HYDR25CA PO; -QUET200T45 PO; +QUET300T23 PO; +QUET50TA PO
[2021-03-04] MEDS ORDERED: ASPirin 81 mg TAB PO ONE (23:00)
[2021-03-04] MEDS ORDERED: METOPROLOL TARTRATE 1MG/1ML-5ML VIAL IV ONE (23:30)
[2021-03-04 23:43] LABS: Basophils # (auto) 0.1 10 ^3/uL (0-0.2); Basophils % (auto) 1.1 % (0.0-2.0); Eosinophils # (auto) 0.1 10 ^3/uL (0-0.8); Eosinophils % (auto) 1.6 % (0.0-7.0); Hemoglobin 13.4 g/dL (13.5-17.5); Lymphocytes # (auto) 2.7 10 ^3/uL (0.4-5.4); Lymphocytes % (auto) 37.5 % (10.0-50.0); Mean Corpuscular Hemoglobin 33.3 pg (28.0-32.0); Mean Corpuscular Hgb Conc. 33.4 g/dL (32.0-36.0); Mean Corpuscular Volume 99.8 fL (80.0-100.0); Neutrophils # (auto) 3.3 10 ^3/uL (1.6-8.6); Neutrophils % (auto) 45.8 % (37.0-80.0); Platelet Count (auto) 195 10^3/uL (140-450); Red Blood Cells 4.01 10^6/uL (4.5-5.90); Red Cell Distribution Width 17.5 % (11.8-14.3); White Blood Cell 7.2 10^3/uL (4.4-10.8)
[2021-03-05] VITALS (13 sets, daily range): BP systolic 95–144; BP diastolic 63–102
[2021-03-05 00:02] LABS: Albumin 3.1 g/dL (3.4-5.0); Calcium 7.2 mg/dL (8.5-10.1); Magnesium 1.5 mg/dL (1.6-2.6); Potassium 3.1 mmol/L (3.5-5.1)
[2021-03-05 00:13] LABS: Bilirubin, Total 0.9 mg/dL (0.2-1.0); Total Protein 7.2 g/dL (6.4-8.2)
[2021-03-05 00:25] LABS: BUN/Creatinine Ratio 9.3
[2021-03-05] MEDS ORDERED: diazePAM 5 MG TAB PO ONE (01:00)
[2021-03-05] MEDS ORDERED: POTASSIUM CHL 20 Meq TABLET PO ONE ×2 (01:45→05:30)
[2021-03-05] MEDS ORDERED: CALCIUM GLUC 1,000mg/50ml-NS 50 ML IV ONE (05:30)
[2021-03-05] MEDS ORDERED: NITROGLYCERIN 0.4 MG SL TAB SL PRN (05:30)
[2021-03-05] MEDS ORDERED: AMIODARONE HCL 150 MG in D5W 5% 100 ML IV ONE (05:30)
[2021-03-05] MEDS ORDERED: FUROSEMIDE 40 MG/4 ML VIAL IV ONE (05:30)
[2021-03-05] MEDS ORDERED: AMIODARONE 450mg/250ml AE 250 ML IV SCH ×2 (05:45→11:45)
[2021-03-05] MEDS ORDERED: AMIODARONE HCL (50 MG/ ML) 3 ML VIAL IV ONE (05:55)
[2021-03-05] MEDS: MAGNESIUM SULFATE 1GM/100ML 100 ML IV SCH ×2 (06:00→07:46)
[2021-03-05] MEDS: ONDANSETRON HCL 4 MG/2 ML VIAL IV PRN ×2 (06:56→20:11)
[2021-03-05] MEDS: MORPHINE SULF INJ 2 MG/ML SYRINGE 1ML IV PRN ×2 (06:57→20:11)
[2021-03-05] MEDS: buPROPion HCL 75 MG TAB PO SCH ×2 (06:58→19:00)
[2021-03-05 09:49] LABS: Urine WBC None Seen /hpf (0 - 3)
[2021-03-05] MEDS ORDERED: SACUBITRIL-VALSARTAN 24mg/26mg TAB PO SCH (10:00)
[2021-03-05 10:10] LABS: Urine Bacteria NONE SEEN /hpf (None Seen); Urine Blood Negative /uL (Negative); Urine Hyaline Cast MOD /lpf (0 - 2); Urine Specific Gravity 1.017 (1.001-1.035)
[2021-03-05] MEDS: ASPirin 81 mg TAB PO SCH (10:17)
[2021-03-05] MEDS: APIXABAN 5 MG TAB PO SCH ×2 (10:18→21:46)
[2021-03-05] MEDS: CARVEDILOL 3.125 MG TAB PO SCH ×2 (10:18→21:46)
[2021-03-05] MEDS: FAMOTIDINE 20 MG TAB PO SCH ×2 (10:19→21:47)
[2021-03-05 10:20] LABS: Amphetamine Screen, Urine POSITIVE (NEGATIVE); Barbiturate Scree,Urine NEGATIVE (NEGATIVE); Benzodiazephine Screen, Urine POSITIVE (NEGATIVE); Cannabinoid Screen, Urine NEGATIVE (NEGATIVE); Cocaine Screen, Urine NEGATIVE (NEGATIVE); Opiate Scree,Urine NEGATIVE (NEGATIVE); Phencyclidine Screen, Urine NEGATIVE (NEGATIVE)
[2021-03-05] MEDS ORDERED: ESMOLOL HCL-NS 10MG/ML 250 ML IV SCH (11:30)
[2021-03-05] MEDS ORDERED: DOPamine 1600MCG/ML D5W 250 ML IV ONE (14:29)
[2021-03-05] MEDS ORDERED: NOREPINEPHRINE 8 MG/250ML KIT 250 ML IV ONE (14:29)
[2021-03-05] MEDS: DOPamine 1600MCG/ML D5W 250 ML IV SCH (14:52)
[2021-03-05] MEDS: NOREPINEPHRINE 8 MG/250ML KIT 250 ML IV SCH (14:52)
[2021-03-05] MEDS: FUROSEMIDE 20 MG/2 ML VIAL IV SCH (18:13)
[2021-03-05] MEDS: ATORVASTATIN 20 MG TAB PO SCH (21:46)
[2021-03-05] MEDS: TEMAZEPAM 15 MG CAP PO PRN (21:47)
[2021-03-05 22:48] LABS: Calcium 7.7 mg/dL (8.5-10.1); Magnesium 1.6 mg/dL (1.6-2.6); Potassium 4.5 mmol/L (3.5-5.1)
[2021-03-06] VITALS (81 sets, daily range): BP systolic 84–131; BP diastolic 33–94
[2021-03-06] MEDS: MAGNESIUM SULFATE 1GM/100ML 100 ML IV SCH ×2 (00:49→01:47)
[2021-03-06] MEDS: DOPamine 1600MCG/ML D5W 250 ML IV SCH ×2 (02:29→16:37)
[2021-03-06 06:06] LABS: Basophils # (auto) 0.1 10 ^3/uL (0-0.2); Basophils % (auto) 0.5 % (0.0-2.0); Eosinophils # (auto) 0 10 ^3/uL (0-0.8); Eosinophils % (auto) 0.1 % (0.0-7.0); Hematocrit 38.7 % (41.0-53.0); Hemoglobin 12.9 g/dL (13.5-17.5); Lymphocytes # (auto) 1.9 10 ^3/uL (0.4-5.4); Lymphocytes % (auto) 17.2 % (10.0-50.0); Mean Corpuscular Hemoglobin 34.2 pg (28.0-32.0); Mean Corpuscular Hgb Conc. 33.3 g/dL (32.0-36.0); Mean Corpuscular Volume 102.5 fL (80.0-100.0); Monocytes # (auto) 1.3 10 ^3/uL (0-1.3); Monocytes % (auto) 11.5 % (0.0-12.0); Neutrophils % (auto) 70.7 % (37.0-80.0); Nucleated Red Blood Cells % 1.4 %; Platelet Count (auto) 190 10^3/uL (140-450); Red Blood Cells 3.78 10^6/uL (4.5-5.90); Red Cell Distribution Width 17.5 % (11.8-14.3); White Blood Cell 11.3 10^3/uL (4.4-10.8)
[2021-03-06] MEDS: FUROSEMIDE 20 MG/2 ML VIAL IV SCH ×2 (06:40→17:43)
[2021-03-06] MEDS: buPROPion HCL 75 MG TAB PO SCH ×3 (06:40→18:07)
[2021-03-06 07:02] LABS: BUN/Creatinine Ratio 10.3; Bilirubin, Total 3.3 mg/dL (0.2-1.0); Calcium 7.5 mg/dL (8.5-10.1); Magnesium 2.4 mg/dL (1.6-2.6); Total Protein 6.9 g/dL (6.4-8.2)
[2021-03-06] MEDS: ASPirin 81 mg TAB PO SCH (09:57)
[2021-03-06] MEDS: APIXABAN 5 MG TAB PO SCH ×2 (09:58→21:32)
[2021-03-06] MEDS: CARVEDILOL 3.125 MG TAB PO SCH ×2 (09:58→21:32)
[2021-03-06] MEDS: FAMOTIDINE 20 MG TAB PO SCH (09:58)
[2021-03-06] MEDS: MORPHINE SULF INJ 2 MG/ML SYRINGE 1ML IV PRN (12:14)
[2021-03-06] MEDS: NOREPINEPHRINE 8 MG/250ML KIT 250 ML IV SCH (14:30)
[2021-03-06] MEDS: SUCRALFATE 1 GM/10 ML ORAL SUSP PO SCH ×2 (17:43→21:31)
[2021-03-06] MEDS: HYDROCORTISONE ACET 25 MG RECTAL SUPP PR SCH (18:08)
[2021-03-06] MEDS: ATORVASTATIN 20 MG TAB PO SCH (21:32)
[2021-03-06] MEDS: PANTOPRAZOLE 40 MG TAB PO SCH (21:33)
[2021-03-07] VITALS (29 sets, daily range): BP systolic 83–121; BP diastolic 49–84
[2021-03-07 06:15] LABS: INR 2.43 (0.9-1.15)
[2021-03-07] MEDS: buPROPion HCL 75 MG TAB PO SCH ×2 (06:15→19:00)
[2021-03-07] MEDS: SUCRALFATE 1 GM/10 ML ORAL SUSP PO SCH ×4 (06:15→21:04)
[2021-03-07] MEDS: FUROSEMIDE 20 MG/2 ML VIAL IV SCH ×2 (06:16→18:30)
[2021-03-07] MEDS: DOPamine 1600MCG/ML D5W 250 ML IV SCH ×2 (06:16→08:22)
[2021-03-07 06:18] LABS: Albumin 2.9 g/dL (3.4-5.0); Calcium 7.9 mg/dL (8.5-10.1); Potassium 4.3 mmol/L (3.5-5.1)
[2021-03-07 06:29] LABS: Bilirubin, Total 2.1 mg/dL (0.2-1.0); Total Protein 6.8 g/dL (6.4-8.2)
[2021-03-07 06:30] LABS: Basophils # (auto) 0.1 10 ^3/uL (0-0.2); Basophils % (auto) 0.9 % (0.0-2.0); Eosinophils # (auto) 0 10 ^3/uL (0-0.8); Eosinophils % (auto) 0.4 % (0.0-7.0); Hematocrit 40.2 % (41.0-53.0); Hemoglobin 13.3 g/dL (13.5-17.5); Lymphocytes # (auto) 1.5 10 ^3/uL (0.4-5.4); Mean Corpuscular Hgb Conc. 33.1 g/dL (32.0-36.0); Mean Corpuscular Volume 102.6 fL (80.0-100.0); Monocytes # (auto) 1.1 10 ^3/uL (0-1.3); Monocytes % (auto) 10.2 % (0.0-12.0); Neutrophils # (auto) 8.2 10 ^3/uL (1.6-8.6); Neutrophils % (auto) 74.5 % (37.0-80.0); Nucleated Red Blood Cells % 0.6 %; Platelet Count (auto) 164 10^3/uL (140-450); Red Blood Cells 3.92 10^6/uL (4.5-5.90); Red Cell Distribution Width 18.1 % (11.8-14.3)
[2021-03-07] MEDS: CARVEDILOL 3.125 MG TAB PO SCH ×2 (08:38→21:04)
[2021-03-07] MEDS: PANTOPRAZOLE 40 MG TAB PO SCH ×2 (08:38→21:05)
[2021-03-07] MEDS: NOREPINEPHRINE 8 MG/250ML KIT 250 ML IV SCH (08:38)
[2021-03-07] MEDS: APIXABAN 5 MG TAB PO SCH ×2 (09:56→21:05)
[2021-03-07] MEDS: ASPirin 81 mg TAB PO SCH (09:56)
[2021-03-07] MEDS: HYDROCORTISONE ACET 25 MG RECTAL SUPP PR SCH (18:30)
[2021-03-07] MEDS ORDERED: DIGOXIN 0.25 MG TAB PO ONE (20:00)
[2021-03-07] MEDS: ATORVASTATIN 20 MG TAB PO SCH (21:05)
[2021-03-07] MEDS: MORPHINE SULF INJ 2 MG/ML SYRINGE 1ML IV PRN (21:06)
[2021-03-07] MEDS: TEMAZEPAM 15 MG CAP PO PRN (22:29)
[2021-03-08] MEDS: chlordiazePOXIDE HCL 25 MG CAP PO PRN ×2 (00:06→17:29)
[2021-03-08] MEDS: MORPHINE SULF INJ 2 MG/ML SYRINGE 1ML IV PRN (01:03)
[2021-03-08] MEDS: FUROSEMIDE 20 MG/2 ML VIAL IV SCH ×2 (05:45→18:03)
[2021-03-08 05:48] VITALS: BP 111/49
[2021-03-08] MEDS: SUCRALFATE 1 GM/10 ML ORAL SUSP PO SCH ×4 (06:12→21:32)
[2021-03-08] MEDS: buPROPion HCL 75 MG TAB PO SCH ×2 (06:12→18:44)
[2021-03-08 07:21] LABS: Basophils # (auto) 0.1 10 ^3/uL (0-0.2); Basophils % (auto) 0.8 % (0.0-2.0); Eosinophils # (auto) 0 10 ^3/uL (0-0.8); Eosinophils % (auto) 0.4 % (0.0-7.0); Hemoglobin 12.1 g/dL (13.5-17.5); Lymphocytes # (auto) 2.2 10 ^3/uL (0.4-5.4); Mean Corpuscular Hemoglobin 33.2 pg (28.0-32.0); Mean Corpuscular Hgb Conc. 32.7 g/dL (32.0-36.0); Mean Corpuscular Volume 101.5 fL (80.0-100.0); Monocytes # (auto) 1.7 10 ^3/uL (0-1.3); Monocytes % (auto) 14.2 % (0.0-12.0); Neutrophils # (auto) 7.7 10 ^3/uL (1.6-8.6); Neutrophils % (auto) 65.6 % (37.0-80.0); Nucleated Red Blood Cells % 0.5 %; Platelet Count (auto) 162 10^3/uL (140-450); Red Blood Cells 3.64 10^6/uL (4.5-5.90); Red Cell Distribution Width 18.1 % (11.8-14.3); White Blood Cell 11.8 10^3/uL (4.4-10.8)
[2021-03-08 07:33] LABS: Albumin 2.8 g/dL (3.4-5.0); Calcium 7.5 mg/dL (8.5-10.1); Potassium 4.3 mmol/L (3.5-5.1)
[2021-03-08 07:44] LABS: Bilirubin, Total 1.9 mg/dL (0.2-1.0); Total Protein 6.3 g/dL (6.4-8.2)
[2021-03-08 07:56] LABS: BUN/Creatinine Ratio 20.3
[2021-03-08] MEDS ORDERED: DIGOXIN (250MCG/ML) 2 ML AMPULE IV ONE (08:00)
[2021-03-08 08:30] VITALS: BP 113/84
[2021-03-08] MEDS: CARVEDILOL 3.125 MG TAB PO SCH ×2 (10:04→21:32)
[2021-03-08] MEDS: ASPirin 81 mg TAB PO SCH (10:04)
[2021-03-08] MEDS: AMIODARONE HCL 200 MG TAB PO SCH ×2 (10:04→21:32)
[2021-03-08] MEDS: PANTOPRAZOLE 40 MG TAB PO SCH ×2 (10:04→21:32)
[2021-03-08] MEDS: APIXABAN 5 MG TAB PO SCH ×2 (10:04→21:32)
[2021-03-08 13:00] VITALS: BP 122/77
[2021-03-08 17:00] VITALS: BP 113/80
[2021-03-08] MEDS: HYDROCORTISONE ACET 25 MG RECTAL SUPP PR SCH (18:00)
[2021-03-08] MEDS: TEMAZEPAM 15 MG CAP PO PRN (21:31)
[2021-03-08] MEDS: ATORVASTATIN 20 MG TAB PO SCH (21:31)
[2021-03-08 22:10] VITALS: BP 128/75
[2021-03-09] MEDS: chlordiazePOXIDE HCL 25 MG CAP PO PRN ×2 (01:21→11:01)
[2021-03-09 05:04] VITALS: BP 142/74
[2021-03-09] MEDS: buPROPion HCL 75 MG TAB PO SCH ×2 (06:23→17:45)
[2021-03-09] MEDS: SUCRALFATE 1 GM/10 ML ORAL SUSP PO SCH ×4 (06:23→22:27)
[2021-03-09] MEDS: FUROSEMIDE 20 MG/2 ML VIAL IV SCH ×2 (06:23→17:44)
[2021-03-09 06:39] LABS: Mean Corpuscular Volume 101.5 fL (80.0-100.0); Platelet Count (auto) 157 10^3/uL (140-450)
[2021-03-09 06:49] LABS: Hematocrit 37.5 % (41.0-53.0); Hemoglobin 12.4 g/dL (13.5-17.5); Mean Corpuscular Hemoglobin 33.6 pg (28.0-32.0); Mean Corpuscular Hgb Conc. 33.1 g/dL (32.0-36.0); Red Blood Cells 3.69 10^6/uL (4.5-5.90); Red Cell Distribution Width 18.1 % (11.8-14.3)
[2021-03-09 06:51] LABS: Albumin 2.9 g/dL (3.4-5.0); Calcium 7.9 mg/dL (8.5-10.1); Potassium 4.5 mmol/L (3.5-5.1)
[2021-03-09 07:05] LABS: Basophils % (manual) 0 (0.0-2.0); Blast Cells 0; Eosinophils % (manual) 0 (0-7); Metamyelocytes % 0; Myelocytes % 0; Promyelocytes % 0; Reactive Lymphocytes 0
[2021-03-09 07:11] LABS: BUN/Creatinine Ratio 18.1; Bilirubin, Total 1.9 mg/dL (0.2-1.0); Total Protein 6.4 g/dL (6.4-8.2)
[2021-03-09 07:30] LABS: Band Neutrophils % (manual) 2; Lymphocytes % (manual) 16 (10.0-50.0); Monocytes % (manual) 21 (0-12)
[2021-03-09 09:00] VITALS: BP 129/93
[2021-03-09] MEDS: APIXABAN 5 MG TAB PO SCH ×2 (11:00→22:28)
[2021-03-09] MEDS: CARVEDILOL 3.125 MG TAB PO SCH ×2 (11:01→22:28)
[2021-03-09] MEDS: AMIODARONE HCL 200 MG TAB PO SCH ×2 (11:01→22:27)
[2021-03-09] MEDS: ASPirin 81 mg TAB PO SCH (11:01)
[2021-03-09] MEDS: PANTOPRAZOLE 40 MG TAB PO SCH ×2 (11:01→22:28)
[2021-03-09 17:00] VITALS: BP 128/85
[2021-03-09] MEDS: HYDROCORTISONE ACET 25 MG RECTAL SUPP PR SCH (17:45)
[2021-03-09 22:00] VITALS: BP 131/86
[2021-03-09] MEDS: ATORVASTATIN 20 MG TAB PO SCH (22:28)
[2021-03-10 05:00] VITALS: BP 133/86
[2021-03-10 06:05] LABS: Hematocrit 38.3 % (41.0-53.0); Hemoglobin 12.6 g/dL (13.5-17.5); Mean Corpuscular Hemoglobin 33.4 pg (28.0-32.0); Mean Corpuscular Volume 101.3 fL (80.0-100.0); Platelet Count (auto) 166 10^3/uL (140-450); Red Blood Cells 3.78 10^6/uL (4.5-5.90); Red Cell Distribution Width 18.5 % (11.8-14.3)
[2021-03-10 06:19] LABS: Basophils % (manual) 0 (0.0-2.0); Blast Cells 0; Metamyelocytes % 0; Myelocytes % 0; Promyelocytes % 0; Reactive Lymphocytes 0
[2021-03-10] MEDS: FUROSEMIDE 20 MG/2 ML VIAL IV SCH ×2 (06:28→17:39)
[2021-03-10] MEDS: SUCRALFATE 1 GM/10 ML ORAL SUSP PO SCH ×4 (06:29→21:57)
[2021-03-10] MEDS: buPROPion HCL 75 MG TAB PO SCH ×2 (06:30→17:39)
[2021-03-10 06:32] LABS: Albumin 2.9 g/dL (3.4-5.0); BUN/Creatinine Ratio 16.5; Bilirubin, Total 1.6 mg/dL (0.2-1.0); Calcium 7.7 mg/dL (8.5-10.1); Total Protein 6.7 g/dL (6.4-8.2)
[2021-03-10 07:33] LABS: Band Neutrophils % (manual) 1; Eosinophils % (manual) 1 (0-7); Lymphocytes % (manual) 17 (10.0-50.0); Monocytes % (manual) 16 (0-12)
[2021-03-10 09:00] VITALS: BP 128/74
[2021-03-10] MEDS: ASPirin 81 mg TAB PO SCH (11:13)
[2021-03-10] MEDS: CARVEDILOL 3.125 MG TAB PO SCH ×2 (11:14→21:58)
[2021-03-10] MEDS: APIXABAN 5 MG TAB PO SCH ×2 (11:14→21:58)
[2021-03-10] MEDS: PANTOPRAZOLE 40 MG TAB PO SCH ×2 (11:14→21:57)
[2021-03-10] MEDS: AMIODARONE HCL 200 MG TAB PO SCH ×2 (11:14→21:58)
[2021-03-10 12:55] VITALS: BP 128/93
[2021-03-10 16:41] VITALS: BP 133/89
[2021-03-10] MEDS: HYDROCORTISONE ACET 25 MG RECTAL SUPP PR SCH (17:39)
[2021-03-10] MEDS: ATORVASTATIN 20 MG TAB PO SCH (21:58)
[2021-03-10 22:00] VITALS: BP 137/86
[2021-03-11] VITALS (9 sets, daily range): BP systolic 127–151; BP diastolic 77–116
[2021-03-11] MEDS: buPROPion HCL 75 MG TAB PO SCH ×2 (06:00→18:22)
[2021-03-11] MEDS: FUROSEMIDE 20 MG/2 ML VIAL IV SCH ×2 (06:00→18:16)
[2021-03-11] MEDS: SUCRALFATE 1 GM/10 ML ORAL SUSP PO SCH ×4 (06:00→22:11)
[2021-03-11] MEDS: ASPirin 81 mg TAB PO SCH (09:50)
[2021-03-11] MEDS: AMIODARONE HCL 200 MG TAB PO SCH ×2 (09:51→22:18)
[2021-03-11] MEDS: APIXABAN 5 MG TAB PO SCH ×2 (09:51→22:11)
[2021-03-11] MEDS: PANTOPRAZOLE 40 MG TAB PO SCH ×2 (09:52→22:10)
[2021-03-11] MEDS: CARVEDILOL 3.125 MG TAB PO SCH ×2 (09:52→22:11)
[2021-03-11] MEDS: HYDROCORTISONE ACET 25 MG RECTAL SUPP PR SCH (18:00)
[2021-03-11] MEDS: ATORVASTATIN 20 MG TAB PO SCH (22:10)
[2021-03-11] MEDS: TEMAZEPAM 15 MG CAP PO PRN (22:10)
[2021-03-12] MEDS: FUROSEMIDE 20 MG/2 ML VIAL IV SCH ×2 (04:55→18:00)
[2021-03-12] MEDS: SUCRALFATE 1 GM/10 ML ORAL SUSP PO SCH ×3 (04:55→17:00)
[2021-03-12] MEDS: buPROPion HCL 75 MG TAB PO SCH (04:55)
[2021-03-12] MEDS: chlordiazePOXIDE HCL 25 MG CAP PO PRN (04:55)
[2021-03-12 05:00] VITALS: BP 153/99
[2021-03-12 07:24] LABS: Potassium 5.2 mmol/L (3.5-5.1)
[2021-03-12 07:31] LABS: Albumin 2.5 g/dL (3.4-5.0); BUN/Creatinine Ratio 17.2; Total Protein 6.3 g/dL (6.4-8.2)
[2021-03-12 07:40] LABS: Calcium 5.6 mg/dL (8.5-10.1)
[2021-03-12 09:00] VITALS: BP 146/98
[2021-03-12] MEDS: ASPirin 81 mg TAB PO SCH (09:28)
[2021-03-12] MEDS: PANTOPRAZOLE 40 MG TAB PO SCH (09:28)
[2021-03-12] MEDS: APIXABAN 5 MG TAB PO SCH (09:28)
[2021-03-12] MEDS: AMIODARONE HCL 200 MG TAB PO SCH (09:31)
[2021-03-12] MEDS: CARVEDILOL 3.125 MG TAB PO SCH (09:31)
[2021-03-12] MEDS ORDERED: CALCIUM GLUC 1,000mg/50ml-NS 50 ML IV ONE (10:30)
[2021-03-12 12:38] VITALS: BP 138/96
[2021-03-12 14:58] VITALS: BP 128/72
[2021-03-12] MEDS: HYDROCORTISONE ACET 25 MG RECTAL SUPP PR SCH (18:00)
== END 2021-03-12 18:35 | disposition home health service (06) | DRG 190 ==
LOC: ER 22:25 → TELE 03-05 05:25 → DOU IN ICU 03-05 20:52 → TELE-WESTW 03-07 14:58 → ICU CENTRL 03-11 05:20 → DOU IN ICU 03-11 07:35 → TELE-CENTR 03-11 18:05
PROVIDERS: ADMIT Nurse Practitioner; ATTEND Family Medicine
PROC: 02HV33Z Insertion of Infusion Device into Superior Vena Cava, Percutaneous Approach (ICD-10-PCS; principal; 2021-03-05)
DX: I21.4 Non-ST elevation (NSTEMI) myocardial infarction (principal); K72.00 Acute and subacute hepatic failure without coma; N17.0 Acute kidney failure with tubular necrosis; I50.23 Acute on chronic systolic (congestive) heart failure; E11.22 Type 2 diabetes mellitus with diabetic chronic kidney disease; E87.8 Other disorders of electrolyte and fluid balance, not elsewhere classified; I95.9 Hypotension, unspecified; I48.92 Unspecified atrial flutter; I42.8 Other cardiomyopathies; I48.20 Chronic atrial fibrillation, unspecified; I50.84 End stage heart failure; F20.9 Schizophrenia, unspecified; E66.9 Obesity, unspecified; F19.10 Other psychoactive substance abuse, uncomplicated; F10.239 Alcohol dependence with withdrawal, unspecified; Y90.2 Blood alcohol level of 40-59 mg/100 ml; F15.10 Other stimulant abuse, uncomplicated; Z20.822 Contact with and (suspected) exposure to COVID-19; F17.210 Nicotine dependence, cigarettes, uncomplicated; F31.9 Bipolar disorder, unspecified; N18.31 Chronic kidney disease, stage 3a; J45.909 Unspecified asthma, uncomplicated; K64.8 Other hemorrhoids; E78.00 Pure hypercholesterolemia, unspecified; Z79.899 Other long term (current) drug therapy; Z82.49 Family history of ischemic heart disease and other diseases of the circulatory system; Z91.19 Patient's noncompliance with other medical treatment and regimen; Z68.35 Body mass index [BMI] 35.0-35.9, adult
CPT/HCPCS: 36415; 71045; 76705; 80048; 80053; 80307; 81001; 83735; 83880; 84484; 85007; 85025; 85027; 85610; 87081; 87426; 93005; 96365; 96375; G0378; J2405; J3490; J7060